=== PATIENT | female | born 1990 | race American Indian/Alaskan Native ===

== ENCOUNTER 2020-04-14 17:59 | Emergency (ER) | payer SELFPAY ==
[2020-04-15] MEDS ORDERED: ONDANSETRON 4 MG/2 ML INJ IV ONE (01:29)
[2020-04-15] MEDS ORDERED: PANTOPRAZOLE 40 MG INJ IV ONE (01:29)
[2020-04-15] MEDS ORDERED: DICYCLOMINE 20 MG/2 ML INJ IM ONE (01:29)
[2020-04-15] MEDS ORDERED: SODIUM CHLORIDE 0.9% 1000 ML 1,000 ML IV ONE (01:29)
[2020-04-15 01:53] LABS: Bacteria,Urine 1+ /HPF (Negative); Bilirubin,Urine NEG (Negative); Blood,Urine NEG (Negative); Color,Urine Colorless (Yellow); Protein,Urine <15 mg/dL mg/dL (Negative); Urobilinogen,Urine < 2.0 mg/dL (<2.0); WBC,Urine < 1.0 /HPF (0.0-6.0)
--- NOTE | 2020-04-15 02:04 | Emergency Department Report ---
ED N/V/D HPI - General Chief complaint: Abdominal Pain Stated complaint: ABDOMINAL PAIN Time Seen by Provider: 04/15/20 01:23 Source: patient Mode of arrival: Wheelchair Limitations: No Limitations - History of Present Illness Initial comments: Patient is a 29-year-old female who presents emergency room complaints of nausea, vomiting, diarrhea that began yesterday. She also has associated upper abdominal pain. She denies any fever, cough, shortness of breath, hematochezia, hematemesis, melena. 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 She is still a current everyday drinker. States that she drank 1 partner with her she denies any sick contacts. She states that she did travel here from [place]. She has an allergy to Reglan. - Related Data Previous Rx's Medication Instructions Recorded Last Taken Type Ondansetron [Zofran Odt] 4 mg PO Q8HR PRN #10 tab.rapdis 04/15/20 Unknown Rx Pantoprazole [Protonix] 40 mg PO QDAY #14 tablet 04/15/20 Unknown Rx traMADoL [Ultram 50 MG tab] 50 mg PO Q8HR PRN #10 tablet 04/15/20 Unknown Rx Allergies Allergy/AdvReac Type Severity Reaction Status Date / Time metoclopramide [From Reglan] Allergy Hives Verified 04/15/20 01:40 ED Review of Systems ROS: Stated complaint: ABDOMINAL PAIN Other details as noted in HPI Comment: All other systems reviewed and negative ED Past Medical Hx - Past Medical History Previous Medical History?: Yes Hx Diabetes: Yes - Medications Home Medications: Home Medications Medication Instructions Recorded Confirmed Last Taken Type Ondansetron [Zofran Odt] 4 mg PO Q8HR PRN #10 tab.rapdis 04/15/20 Unknown Rx Pantoprazole [Protonix] 40 mg PO QDAY #14 tablet 04/15/20 Unknown Rx traMADoL [Ultram 50 MG tab] 50 mg PO Q8HR PRN #10 tablet 04/15/20 Unknown Rx ED Physical Exam - General Limitations: No Limitations General appearance: alert, in no apparent distress - Head Head exam: Present: atraumatic, normocephalic - Eye Eye exam: Present: normal appearance - ENT ENT exam: Present: mucous membranes dry - Respiratory Respiratory exam: Present: normal lung sounds bilaterally. Absent: respiratory distress, wheezes, rales, rhonchi, stridor, chest wall tenderness, accessory muscle use, decreased breath sounds, prolonged expiratory - Cardiovascular Cardiovascular Exam: Present: normal rhythm, tachycardia, normal heart sounds. Absent: systolic murmur, diastolic murmur, rubs, gallop - GI/Abdominal GI/Abdominal exam: Present: soft, tenderness (epigastric), normal bowel sounds, other (healed surgical incision). Absent: distended, guarding, rebound, rigid - Neurological Exam Neurological exam: Present: alert, oriented X3 - Psychiatric Psychiatric exam: Present: normal affect, normal mood - Skin Skin exam: Present: warm, dry, intact ED Course Vital Signs 04/14/20 04/15/20 18:41 04:11 Temperature 98.1 F 98.1 F Pulse Rate 111 H 101 H Respiratory 18 16 Rate Blood Pressure 170/108 Blood Pressure 159/108 [Right] O2 Sat by Pulse 100 100 Oximetry ED Medical Decision Making - Lab Data Result diagrams: 04/15/20 02:25 04/15/20 02:25 Lab Results 04/14/20 04/15/20 04/15/20 Range/Units 18:43 01:39 02:25 WBC 5.5 (4.5-11.0) K/mm3 RBC 3.74 (3.65-5.03) M/mm3 Hgb 10.4 (10.1-14.3) gm/dl Hct 32.5 (30.3-42.9) % MCV 87 (79-97) fl MCH 28 (28-32) pg MCHC 32 (30-34) % RDW 23.8 H (13.2-15.2) % Plt Count 417 (140-440) K/mm3 Add Manual Diff Complete Total Counted 100 Seg Neutrophils % Registered Representative Seg Neuts % (Manual) 44.0 (40.0-70.0) % Lymphocytes % (Manual) 48.0 H (13.4-35.0) % Monocytes % (Manual) 4.0 (0.0-7.3) % Eosinophils % (Manual) 4.0 (0.0-4.3) % Nucleated RBC % Not Reportable Seg Neutrophils # Man 2.4 (1.8-7.7) K/mm3 Band Neutrophils # 0.0 K/mm3 Lymphocytes # (Manual) 2.6 (1.2-5.4) K/mm3 Abs React Lymphs (Man) 0.0 K/mm3 Monocytes # (Manual) 0.2 (0.0-0.8) K/mm3 Eosinophils # (Manual) 0.2 (0.0-0.4) K/mm3 Basophils # (Manual) 0.0 (0.0-0.1) K/mm3 Metamyelocytes # 0.0 K/mm3 Myelocytes # 0.0 K/mm3 Promyelocytes # 0.0 K/mm3 Blast Cells # 0.0 K/mm3 WBC Morphology Not Reportable Hypersegmented Neuts Not Reportable Hyposegmented Neuts Not Reportable Hypogranular Neuts Not Reportable Smudge Cells Not Reportable Toxic Granulation Not Reportable Toxic Vacuolation Not Reportable Dohle Bodies Not Reportable Pelger-Huet Anomaly Not Reportable Maureen Rods Not Reportable Platelet Estimate Consistent w auto Clumped Platelets Not Reportable Plt Clumps, EDTA Not Reportable Large Platelets Not Reportable Giant Platelets Not Reportable Platelet Satelliting Not Reportable Plt Morphology Comment Not Reportable RBC Morphology Not Reportable Dimorphic RBCs Not Reportable Polychromasia Not Reportable Hypochromasia Not Reportable Poikilocytosis Not Reportable Anisocytosis 1+ Microcytosis Not Reportable Macrocytosis Not Reportable Spherocytes Not Reportable Pappenheimer Bodies Not Reportable Sickle Cells Not Reportable Target Cells Not Reportable Tear Drop Cells Not Reportable Ovalocytes Not Reportable Helmet Cells Not Reportable Villare[place] Bodies Not Reportable [place] Rings Not Reportable Erick Cells Not Reportable Bite Cells Not Reportable Crenated Cell Not Reportable Elliptocytes Not Reportable Acanthocytes (Spur) Not Reportable Rouleaux Not Reportable Hemoglobin C Crystals Not Reportable Schistocytes Not Reportable Malaria parasites Not Reportable Jose Bodies Not Reportable Hem Pathologist Commnt No Sodium (137-145) mmol/L Potassium (3.6-5.0) mmol/L Chloride (98-107) mmol/L Carbon Dioxide (22-30) mmol/L Anion Gap mmol/L BUN (7-17) mg/dL Creatinine (0.6-1.2) mg/dL Estimated GFR ml/min BUN/Creatinine Ratio % Glucose (65-100) mg/dL POC Glucose 137 H (70-105) mg/dL Calcium (8.4-10.2) mg/dL Total Bilirubin (0.1-1.2) mg/dL AST (5-40) units/L ALT (7-56) units/L Alkaline Phosphatase (35-129) units/L Total Protein (6.3-8.2) g/dL Albumin (3.9-5) g/dL Albumin/Globulin Ratio % Lipase (13-60) units/L HCG, Qual (Negative) Urine Color Colorless (Yellow) Urine Turbidity Clear (Clear) Urine pH 7.0 (5.0-7.0) Ur Specific [place] 1.001 L (1.003-1.030) Urine Protein <15 mg/dl (Negative) mg/dL Urine Glucose (UA) Neg (Negative) mg/dL Urine Ketones Neg (Negative) mg/dL Urine Blood Neg (Negative) Urine Nitrite Neg (Negative) Urine Bilirubin Neg (Negative) Urine Urobilinogen < 2.0 (<2.0) mg/dL Ur Leukocyte Esterase Neg (Negative) Urine WBC (Auto) < 1.0 (0.0-6.0) /HPF Urine RBC (Auto) 1.0 (0.0-6.0) /HPF U Epithel Cells (Auto) 1.0 (0-13.0) /HPF Urine Bacteria (Auto) 1+ (Negative) /HPF Plasma/Serum Alcohol (0-0.07) % 04/15/20 04/15/20 04/15/20 Range/Units 02:25 02:25 02:25 WBC (4.5-11.0) K/mm3 RBC (3.65-5.03) M/mm3 Hgb (10.1-14.3) gm/dl Hct (30.3-42.9) % MCV (79-97) fl MCH (28-32) pg MCHC (30-34) % RDW (13.2-15.2) % Plt Count (140-440) K/mm3 Add Manual Diff Total Counted Seg Neutrophils % Seg Neuts % (Manual) (40.0-70.0) % Lymphocytes % (Manual) (13.4-35.0) % Monocytes % (Manual) (0.0-7.3) % Eosinophils % (Manual) (0.0-4.3) % Nucleated RBC % Seg Neutrophils # Man (1.8-7.7) K/mm3 Band Neutrophils # K/mm3 Lymphocytes # (Manual) (1.2-5.4) K/mm3 Abs React Lymphs (Man) K/mm3 Monocytes # (Manual) (0.0-0.8) K/mm3 Eosinophils # (Manual) (0.0-0.4) K/mm3 Basophils # (Manual) (0.0-0.1) K/mm3 Metamyelocytes # K/mm3 Myelocytes # K/mm3 Promyelocytes # K/mm3 Blast Cells # K/mm3 WBC Morphology Hypersegmented Neuts Hyposegmented Neuts Hypogranular Neuts Smudge Cells Toxic Granulation Toxic Vacuolation Dohle Bodies Pelger-Huet Anomaly Maureen Rods Platelet Estimate Clumped Platelets Plt Clumps, EDTA Large Platelets Giant Platelets Platelet Satelliting Plt Morphology Comment RBC Morphology Dimorphic RBCs Polychromasia Hypochromasia Poikilocytosis Anisocytosis Microcytosis Macrocytosis Spherocytes Pappenheimer Bodies Sickle Cells Target Cells Tear Drop Cells Ovalocytes Helmet Cells Villareal-[place] Bodies [place] Rings Erick Cells Bite Cells Crenated Cell Elliptocytes Acanthocytes (Spur) Rouleaux Hemoglobin C Crystals Schistocytes Malaria parasites Jose Bodies Hem Pathologist Commnt Sodium 136 L (137-145) mmol/L Potassium 3.6 (3.6-5.0) mmol/L Chloride 96.0 L (98-107) mmol/L Carbon Dioxide 22 (22-30) mmol/L Anion Gap 22 mmol/L BUN 4 L (7-17) mg/dL Creatinine 0.5 L (0.6-1.2) mg/dL Estimated GFR > 60 ml/min BUN/Creatinine Ratio 8 % Glucose 153 H (65-100) mg/dL POC Glucose (70-105) mg/dL Calcium 9.7 (8.4-10.2) mg/dL Total Bilirubin 0.40 (0.1-1.2) mg/dL AST 184 H (5-40) units/L ALT 47 (7-56) units/L Alkaline Phosphatase 90 (35-129) units/L Total Protein 8.4 H (6.3-8.2) g/dL Albumin 4.6 (3.9-5) g/dL Albumin/Globulin Ratio 1.2 % Lipase 26 (13-60) units/L HCG, Qual Negative (Negative) Urine Color (Yellow) Urine Turbidity (Clear) Urine pH (5.0-7.0) Ur Specific [place] (1.003-1.030) Urine Protein (Negative) mg/dL Urine Glucose (UA) (Negative) mg/dL Urine Ketones (Negative) mg/dL Urine Blood (Negative) Urine Nitrite (Negative) Urine Bilirubin (Negative) Urine Urobilinogen (<2.0) mg/dL Ur Leukocyte Esterase (Negative) Urine WBC (Auto) (0.0-6.0) /HPF Urine RBC (Auto) (0.0-6.0) /HPF U Epithel Cells (Auto) (0-13.0) /HPF Urine Bacteria (Auto) (Negative) /HPF Plasma/Serum Alcohol 0.20 H (0-0.07) % - Radiology Data Radiology results: report reviewed CT ABDOMEN AND PELVIS WITH CONTRAST HISTORY: epigastric abd pain, n/v/d. COMPARISON: None. TECHNIQUE: CT images of the abdomen and pelvis were obtained following admi nistration of intravenous contrast. All CT scans at this location are performed using CT dose reduction for ALARA by means of automated exposure control. CONTRAST: 100 ml of intravenous contrast administered. FINDINGS: Lungs/bones: The lung bases are clear. No acute osseous abnormality or significant degenerative change. Abdomen/pelvis: There is mild hepatic steatosis. The gallbladder, adrenals, k idneys, and proximal GI tract appear unremarkable. Distal pancreatectomy and splenectomy change is present. There is also calcification in the pancreas which could be seen with chronic pancreatitis. Urinary bladder and reproductive organs are unremarkable with no pelvic free fluid or acute colonic abnormality identified. The appendix is normal. Old midline scar noted. IMPRESSION: 1. No acute abnormality identified. 2. Postoperative and chronic-appearing findings as above. Signer Name: Jake Santa MD Signed: 04/15/2020 4:01 AM Workstation Name: [id number] - Medical Decision Making Patient is a 29-year-old female who presents emergency room complaints of nausea , vomiting, diarrhea that began yesterday. She also has associated upper abdominal pain. She denies any fever, cough, shortness of breath, hematochezia, hematemesis, melena. 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 She is still a current everyday drinker. States that she drank 1 partner with her she denies any sick contacts. She states that she did travel here from [place]. She has an allergy to Reglan. initial vitals with tachycardia which improved, bp is elevated, otherwise vitals are stable, advised to follow up with PCP, lifestyle modifications, keep a BP log. on exam: pt has epigastric ttp, no guarding, no rebound, no rigidity, normal bowel sounds, no peritoneal signs. Labs significant for mildly elevated AST, blood alcohol is 0.20, otherwise vitals are stable. No leukocytosis, lipase is normal. hCG is negative. UA is within normal limits. CT abdomen pelvis with IV contrast shows 1. No acute abnormality identified.2. Postoperative and chronic-appearing findings as above. Patient given medications while in the emergency department and symptoms improved and she was feeling much better and ready to go home. Patient was able to tolerate p.o. intake without difficulty and had no further episodes of vomiting. Patient did not drive to the emergency department and is clinically sober at this time and is released into the care of her family member. Patient given outpatient detox facilities. Patient given prescription for Zofran and short course of tramadol and given Protonix. Advised patient to please take medication as prescribed as needed. Do not drive or operate machinery while taking pain medication. Increase your fluid intake. Eat a bland liquid diet and slowly advance your diet as tolerated. Follow-up with a primary care doctor. Follow-up with your GI doctor. Return to emergency room for any new or worsening symptoms. Critical care attestation.: If time is entered above; I have spent that time in minutes in the direct care of this critically ill patient, excluding procedure time. ED Disposition Clinical Impression: Nausea vomiting and diarrhea, Elevated AST (SGOT), Alcohol abuse Abdominal pain Qualifiers: Abdominal location: epigastric Qualified Code(s): R10.13 - Epigastric pain Disposition: TO HOME OR SELFCARE Is pt being admited?: No Does the pt Need Aspirin: No Condition: Stable Instructions: Alcohol Use Disorder, Viral Gastroenteritis, Adult, Abdominal Pain (ED) Additional Instructions: Please take medication as prescribed as needed. Do not drive or operate machinery while taking pain medication. Increase your fluid intake. Eat a bland liquid diet and slowly advance your diet as tolerated. Follow-up with a primary care doctor. Follow-up with your GI doctor. Return to emergency room for any new or worsening symptoms. Prescriptions: Pantoprazole [Protonix] 40 mg PO QDAY #14 tablet traMADoL [Ultram 50 MG tab] 50 mg PO Q8HR PRN #10 tablet PRN Reason: Pain , Severe (7-10) Ondansetron [Zofran Odt] 4 mg PO Q8HR PRN #10 tab.rapdis PRN Reason: Nausea And Vomiting Referrals: SHABBIR ELIZONDO MD [Primary Care Provider] - 2-3 Days [facility] [Provider Group] - 2-3 Days Time of Disposition: 06:50 Print Language: ALBANIAN
[2020-04-15 02:54] LABS: Hematocrit 32.5 % (30.3-42.9); Hemoglobin 10.4 gm/dl (10.1-14.3); Mean Corpuscular HGB Conc 32 % (30-34); Mean Corpuscular Volume 87 fl (79-97); Platelet Count 417 K/mm3 (140-440); Red Blood Count 3.74 M/mm3 (3.65-5.03)
[2020-04-15 02:58] LABS: Red Cell Distribution Width 23.8 % (13.2-15.2)
[2020-04-15 03:15] LABS: Alanine Aminotransferase 47 units/L (7-56); Albumin 4.6 g/dL (3.9-5); Blood Urea Nitrogen 4 mg/dL (7-17); Calcium 9.7 mg/dL (8.4-10.2); Hemolysis Index 44
[2020-04-15 03:21] LABS: BUN/Creatinine Ratio 8
--- NOTE | 2020-04-15 05:05 | Cat Scan Report ---
CT ABDOMEN AND PELVIS WITH CONTRAST HISTORY: epigastric abd pain, n/v/d. COMPARISON: None. TECHNIQUE: CT images of the abdomen and pelvis were obtained following administration of intravenous contrast. All CT scans at this location are performed using CT dose reduction for ALARA by means of automated exposure control. CONTRAST: 100 ml of intravenous contrast administered. FINDINGS: Lungs/bones: The lung bases are clear. No acute osseous abnormality or significant degenerative cr ge. Abdomen/pelvis: There is mild hepatic steatosis. The gallbladder, adrenals, kidneys, and proximal GI tract appear unremarkable. Distal pancreatectomy and splenectomy change is present. There is also ca lcification in the pancreas which could be seen with chronic pancreatitis. Urinary bladder and reproductive organs are unremarkable with no pelvic free fluid or acute colonic a bnormality identified. The appendix is normal. Old midline scar noted. IMPRESSION: 1. No acute abnormality identified. 2. Postoperative and chronic-appearing findings as above. Signer Name: Jake Santa MD Signed: 04/15/2020 5:01 AM Workstation Name: [id number]
[2020-04-15 05:06] LABS: Total Cells Counted 100
[2020-04-15 05:07] LABS: Anisocytosis 1+; Platelet Estimate Consistent w Auto
[2020-04-15] MEDS ORDERED: HYDROmorphone 1 MG/1 ML INJ IV ONE (05:13)
[2020-04-15 07:23] VITALS: BP 127/88
== END 2020-04-15 07:23 | disposition home or self-care (01) ==
LOC: ED 17:59
DX: R10.10 Upper abdominal pain, unspecified (principal); R19.7 Diarrhea, unspecified; R11.2 Nausea with vomiting, unspecified
CPT/HCPCS: 36415; 74177; 80053; 81001; 82962; 83690; 84703; 85007; 85025; 96361; 96372; 96374; 96375; 99284; C9113; J0500; J1170; J2405; J7030; Q9967; 80320; G0480

== ENCOUNTER 2020-04-20 02:17 | Emergency (ER) | payer SELFPAY | END 2020-04-20 03:00 | disposition left against medical advice (07) | LOC: ED 02:17 | DX: R10.9 Unspecified abdominal pain (principal); Z53.21 Procedure and treatment not carried out due to patient leaving prior to being seen by health care provider ==